=== PATIENT | female | born 1985 | race Caucasian/White ===

== ENCOUNTER 2020-03-31 13:30 | Emergency (ER) | payer BC ==
[~2020-03-31] VITALS: Ht 162.6 cm; Wt 77.1 kg
[2020-03-31 13:36] VITALS: Ht 162.6 cm; Wt 77.1 kg
[2020-03-31 15:52] VITALS: BP 106/68
== END 2020-03-31 15:56 | disposition home or self-care (01) ==
LOC: ED 13:30
DX: G43.909 Migraine, unspecified, not intractable, without status migrainosus (principal)
CPT/HCPCS: J1885; J3030